=== PATIENT | female | born 1960 | race Two or more races ===

== ENCOUNTER 2018-04-30 12:34 | Outpatient (CLI) | payer OTHER ==
[~2018-04-30 12:34] MED LIST: CLONAZEPAM0.5 MG; COZAAR50 MG; CRESTOR40 MG; GLUCOPHAGE XR500 MG; LYRICA200 MG; NAPR500T14; SYNTHROID137 MCG
== END 2018-04-30 15:03 | disposition home or self-care (01) ==
LOC: NUCLEAR 12:34
DX: I82.403 Acute embolism and thrombosis of unspecified deep veins of lower extremity, bilateral (principal); I73.9 Peripheral vascular disease, unspecified